=== PATIENT | female | born 1975 | race Caucasian/White ===

== ENCOUNTER 2017-04-16 16:36 | Emergency (ER) | payer OTHER ==
[~2017-04-16] VITALS: Ht 167.6 cm; Wt 93.8 kg
[2017-04-16 16:41] VITALS: TEMP 37.1; Ht 167.6 cm; Wt 93.8 kg
[2017-04-16] MEDS ORDERED: MoRPHine SULFATE 10 MG/ML CARP/VIAL IV STA (16:47)
[2017-04-16] MEDS ORDERED: ONDANSETRON INJ 2 MG/ML 2 ML VIAL IV STA (16:47)
[2017-04-16] MEDS ORDERED: SODIUM CHLORIDE 0.9% 1000ML 1,000 ML IV STA (16:53)
[2017-04-16] MEDS ORDERED: LISI-725 PO (16:58)
[2017-04-16] MEDS ORDERED: AMLO-114 PO (16:58)
[2017-04-16] MEDS ORDERED: VENL75CA PO (16:58)
[2017-04-16] MEDS ORDERED: OPTIRAY 320 IV PRN (17:00)
[2017-04-16] MEDS ORDERED: DIPHTHERIA/TETANUS/PERTUSSIS 0.5 ML SYR/VIAL IM. ONE (17:15)
[2017-04-16 17:36] LABS: BASO % 0.1 %; BASO ABS # 0.01 K/uL (0-0.2); COMPLETE YES; EOS % 0.8 %; HEMATOCRIT 46.4 % (37-47); IG% 0.2 %; LYMPH % 48.8 %; LYMPH ABS # 4.09 K/uL (1.2-3.4); MEAN CELL VOLUME 84.1 fL (80-100); MEAN CORPUSCULAR HEMOGLOBIN 30.1 pg (25-34); MEAN CORPUSCULAR HGB CONC 35.8 g/dl (32-36); MEAN PLATELET VOLUME 10.1 fL (7.4-10.4); MONO % 6.2 %; NEUT % 43.9 %; PLATELET COUNT 259 K/uL (130-400); RED BLOOD COUNT 5.52 M/uL (4.2-5.4); WHITE BLOOD COUNT 8.38 K/uL (4.8-10.8)
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
[2017-04-16] MEDS ORDERED: HYDROmorphone INJ 1 MG/ML SYR IV STA (17:46)
[2017-04-16 18:30] LABS: BUN/CREATININE RATIO 11.6 (10-20); CALCIUM 9.1 mg/dl (8.5-10.1); CREATININE 0.83 mg/dl (0.60-1.20); POTASSIUM 3.9 mmol/L (3.5-5.1)
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
[2017-04-16 19:54] VITALS: BP 148/92; PULSE 93; O2SAT 95
[2017-04-16] MEDS ORDERED: OXYCODONE IR HOME PACK PO ONE (20:00)
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
== END 2017-04-16 20:37 | disposition home or self-care (01) ==
LOC: EDBD 16:36 → C.EDC 16:40
DX: S52.591A Other fractures of lower end of right radius, initial encounter for closed fracture (principal); S52.614A Nondisplaced fracture of right ulna styloid process, initial encounter for closed fracture; S62.646A Nondisplaced fracture of proximal phalanx of right little finger, initial encounter for closed fracture; V53.5XXA Driver of pick-up truck or van injured in collision with car, pick-up truck or van in traffic accident, initial encounter; Z79.899 Other long term (current) drug therapy; Z23 Encounter for immunization